=== PATIENT | male | born 1980 | race Caucasian/White ===

== ENCOUNTER 2021-12-14 13:19 | Emergency (ER) | payer OTHER, SELFPAY ==
[2021-12-14 13:24] VITALS: BP 133/99; PULSE 102; RESP 20; TEMP 36.4; O2SAT 96
[2021-12-14 13:35] VITALS: BP 133/99; PULSE 102; RESP 20; TEMP 36.4; O2SAT 96
--- NOTE | 2021-12-14 13:35 | ED.SKABFB ---
HPI - Skin/Abscess/Foreign Bdy General Chief complaint: Skin/Abscess/Foreign Body Stated complaint: infection lower stomach right side Time Seen by Provider: 12/14/21 13:35 Source: patient Mode of arrival: ambulatory Limitations: no limitations History of Present Illness HPI narrative: 41-year-old male presented for complaints of abscess to the right lower abdominal fold. He states it started as a pimple 4 days ago. It grew in size and became more painful. Today he allowed his to press on it and removed small amount of white pus. They also applied mupirocin cream. Denies nausea, vomiting, fevers or chills. The site is tender where his waistband rubs the site. Denies other locations of abscesses/boils. MD complaint: abscess/boil Related Data Allergies Allergy/AdvReac Type Severity Reaction Status Date / Time No Known Allergies Allergy Verified 12/14/21 13:34 Review of Systems Review of Systems: CONSTITUTIONAL: Denies body aches, fever, chills, or sweats. EYES: Denies visual changes, redness, or discharge. ENT: Denies rhinorrhea, congestion, sore throat, or otalgia. CARDIOVASCULAR: Denies chest pain, palpitations, or edema. RESPIRATORY: Denies cough or dyspnea. GASTROINTESTINAL: Denies abdominal pain, nausea, vomiting, or diarrhea. GENITOURINARY: Denies dysuria or hematuria. SKIN: reports boil MUSCULOSKELETAL: Denies back pain, joint pain, or myalgia. NEUROLOGIC: Denies headache, numbness, tingling, or weakness. PSYCH: Denies depression or anxiety. PMFSH Comments At time of signature, I have reviewed and agree with nursing past medical, surgical, social and family history unless otherwise noted. Please see nursing chart for further information. There is no relevant family history pertinent to the presenting complaint Exam Narrative: GENERAL: Well-appearing HEAD: Normocephalic, atraumatic. EYES:conjunctivae clear, and EOMI. ENT: Mucous membranes moist. Oropharynx without edema, erythema or lesions. NECK: Supple. No lymphadenopathy CHEST: Clear to auscultation. No respiratory distress. HEART: Regular rate and rhythm. SKIN: Warm, dry. Right lower abdomen with approx 2cm diameter abscess, surrounding erythema of approx 5cm x3cm. No fluctuance, induration or active drainage. The site is firm and slightly tender with palpation. NEURO: Alert and oriented x3. PSYCH: Normal mood and affect Course Course Emergency Course: Patient is aware of diagnosis, understands and agrees to treatment plan. Anticipatory guidance given. Patient agrees to follow-up as directed and is aware of reasons to seek care at the emergency department. Portions of this record may have been created with voice recognition software Level of Care: Express Care Visit Vital Signs Vital signs: Vital Signs Temperature 97.6 F 12/14/21 13:24 Pulse Rate 102 H 12/14/21 13:24 Respiratory Rate 20 12/14/21 13:24 Blood Pressure 133/99 H 12/14/21 13:24 Pulse Oximetry 96 12/14/21 13:24 Temperature 97.6 F 12/14/21 13:35 Pulse Rate 102 H 12/14/21 13:35 Respiratory Rate 20 12/14/21 13:35 Blood Pressure 133/99 H 12/14/21 13:35 Pulse Oximetry 96 12/14/21 13:35 Reviewed MDM - Skin/Abscess/Foreign Bdy MDM Narrative Medical decision making narrative: Patient looks well, nontoxic, afebrile; appropriate for initial outpatient treatment; discussed the importance of follow-up, patient agrees Instructed patient to go to nearest ER immediately for any worsening symptoms including but not limited to: fever, spreading redness, pain, sore throat, headache, dizziness, chest pain, trouble breathing, or any symptoms concerning to the patient. Differential Diagnosis Differential diagnosis: Likely abscess of skin or subcutaneous tissue, urticaria, herpes zoster, cellulitis and contact dermatitis Discharge Plan Discharge Clinical Impression: Abscess of skin or subcutaneous tissue Qualifiers: Site of cutaneous abscess: trunk Site of cutane
== END 2021-12-14 13:47 | disposition home or self-care (01) ==
PROVIDERS: Emergency Provider Nurse Practitioner Family
DX: L02.211 Cutaneous abscess of abdominal wall (principal)
CPT/HCPCS: 99203; G0463

== ENCOUNTER 2024-02-14 08:34 | Emergency (ER) | payer BC, SELFPAY ==
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
[2024-02-14 08:47] VITALS: BP 145/90; PULSE 98; RESP 16; TEMP 36.6; O2SAT 99
== END 2024-02-14 09:08 | disposition home or self-care (01) ==
PROVIDERS: Emergency Provider Nurse Practitioner; PCP Family Medicine
DX: M79.672 Pain in left foot (principal); E11.9 Type 2 diabetes mellitus without complications
CPT/HCPCS: 99212; G0463